=== PATIENT | male | born 1960 | race Caucasian/White ===

== ENCOUNTER 2016-04-27 10:38 | Emergency (ER) | payer BC ==
[~2016-04-27] VITALS: Ht 167.6 cm; Wt 78.0 kg
[~2016-04-27 10:38] MED LIST: ASPIRIN81 M2 PO; ATORVASTATIN CA20 MG PO; CELEXA 10 MG TA10 M1 PO; FISHOIL; MOBIC15 MG PO; NORCO 5-325 TA1 EACH; PRILOSEC; TAMSULOSIN HCL0.4 M1; TORADOL 10 MG T10 MG PO; TRAMADOL 50 MG50 MG PO; ZOFRAN ODT4 MG PO
[2016-04-27] MEDS ORDERED: BP MED (10:58)
[2016-04-27] MEDS ORDERED: COLESTEROL MED (10:59)
[2016-04-27 11:02] LABS: BASOPHILS 0.4 % (0.0-2.0); EOSINOPHILS 0.3 % (0.0-3.0); HEMATOCRIT 43.3 % (42.0-52.0); HEMOGLOBIN 14.9 gm/dL (14.0-18.0); LYMPHOCYTES 13.9 % (24.0-44.0); MCH 30.9 pg (26.0-34.0); MCHC 34.3 % (28.0-37.0); MCV 90.1 fL (80.0-100.0); MONOCYTES 4.5 % (1.0-8.0); PLATELET COUNT 241 thou/uL (150-400); POLYS 80.9 % (36.0-66.0); RBC 4.81 mil/uL (4.50-6.00); RDW 13.3 % (10.5-14.5); WBC 11.1 thou/uL (4.0-11.0)
[2016-04-27 11:10] LABS: CALCIUM 8.9 mg/dL (8.5-10.1); CREATININE 1.3 mg/dL (0.6-1.3); POTASSIUM 4.7 mmol/L (3.5-5.1)
[2016-04-27 11:11] LABS: MANUAL DIFF NO
[2016-04-27] MEDS ORDERED: PHENERGAN 25 MG25 M1 PO (13:09)
[2016-04-27] MEDS ORDERED: FLOMAX0.4 MG PO (13:09)
[2016-04-27] MEDS ORDERED: NORCO 5-325 TA1 EACH PO (13:09)
== END 2016-04-27 13:32 | disposition home or self-care (01) ==
LOC: ER 10:38
PROVIDERS: Emergency Medicine
DX: N20.0 Calculus of kidney (principal); Z88.1 Allergy status to other antibiotic agents; Z88.5 Allergy status to narcotic agent

== ENCOUNTER → 2020-05-22 | Outpatient (CLI) | payer BC ==
[~2020-05-22] MED LIST changes: +BP MED; +COLESTEROL MED; +FLOMAX0.4 MG PO; +NORCO 5-325 TA1 EACH PO; +PHENERGAN 25 MG25 M1 PO
== END ==
LOC: ULTRA 07:54
PROVIDERS: ATTEND Family Medicine
DX: R10.11 Right upper quadrant pain (principal)